=== PATIENT | female | born 1945 | race Caucasian/White ===

== ENCOUNTER 2016-09-16 08:27 | Day surgery (SDC) | payer MEDICARE, BC ==
[2016-09-16] MEDS ORDERED: ACETAZOLAMIDE 500 MG CER ONE (08:44)
[2016-09-16] MEDS: PROPARACAINE HCL 0.5% OPHTHALMIC SOL ONE ×3 (08:56→09:59)
[2016-09-16] MEDS: PHENYLEPHRINE HCL 10% OPHTHAL SOL ONE ×2 (08:57→09:13)
[2016-09-16] MEDS: CYCLOPENTOLATE 1% SOL ONE ×2 (08:57→09:14)
[2016-09-16] MEDS ORDERED: MIDAZOLAM 2 MG/2 ML SOL ONE (09:36)
[2016-09-16] MEDS ORDERED: BSS 500 ML 500 ML IR ONE (09:56)
[2016-09-16] MEDS ORDERED: POVIDONE IODINE 5% SOL ONE (09:56)
[2016-09-16] MEDS ORDERED: LIDOCAINE HCL 1% MPF SOL ONE (09:56)
[2016-09-16 10:39] VITALS: BP 124/65; PULSE 72; RESP 20; TEMP 97.2; O2SAT 98
== END 2016-09-16 10:55 | disposition home or self-care (01) | DRG 125 ==
LOC: SURG 08:27
PROVIDERS: ATTEND Ophthalmology
DX: H25.9 Unspecified age-related cataract (principal)
CPT/HCPCS: J2250; J2001

== ENCOUNTER 2016-09-19 08:40 | Emergency (ER) | payer MEDICARE, BC ==
[2016-09-19] MEDS ORDERED: HYDROMORPHONE HCL 2 MG/ML SOL IV ONE (08:58)
[2016-09-19] MEDS ORDERED: ONDANSETRON HCL 4 MG/2 ML SOL IM ONE (08:59)
[2016-09-19 09:14] VITALS: BP 133/83; PULSE 78; RESP 20; TEMP 97.5; O2SAT 100
[2016-09-19] MEDS ORDERED: ONDANSETRON HCL 4 MG/2 ML SOL ONE (09:21)
[2016-09-19] MEDS ORDERED: HYDROMORPHONE 1 MG/ML SYRINGE ONE (09:21)
[2016-09-19] MEDS ORDERED: HYDROMORPHONE HCL 2 MG/ML SOL IM ONE (09:27)
== END 2016-09-19 10:15 | disposition home or self-care (01) | DRG 395 ==
LOC: ED 08:40
DX: K66.0 Peritoneal adhesions (postprocedural) (postinfection) (principal)
CPT/HCPCS: 99283; J2405; J1170

== ENCOUNTER 2017-08-23 10:57 | Emergency (ER) | payer MEDICARE, BC ==
[2017-08-23] MEDS ORDERED: ONDANSETRON HCL IV ONE (11:15)
[2017-08-23] MEDS ORDERED: SODIUM CHLORIDE 0.9% IV ONE (11:15)
[2017-08-23] MEDS ORDERED: HYDROMORPHONE HCL 2 MG/ML SOL IV ONE (11:16)
[2017-08-23] MEDS ORDERED: HYDROMORPHONE 1 MG/ML SYRINGE ONE (11:21)
[2017-08-23] MEDS ORDERED: ONDANSETRON HCL 4 MG/2 ML SOL ONE ×2 (11:21→13:36)
[2017-08-23] MEDS: SODIUM CHLORIDE 0.9% 1000ML 1,000 ML IV SCH ×4 (11:33→14:18)
[2017-08-23 11:34] VITALS: RESP 18
[2017-08-23 11:37] LABS: BASOPHILS % (AUTO) 1 % (0-3); EOSINOPHILS % (AUTO) 1 % (0-9); HEMATOCRIT 42 % (35-47); HEMOGLOBIN 14.1 gm/dl (12.0-15.5); LYMPHOCYTES % (AUTO) 10.1 % (10-50); MEAN CORPUSCULAR HEMOGLOBIN 28.8 pg (27.0-32.0); MEAN CORPUSCULAR HGB CONC 33.9 gm/dl (32.0-36.0); MEAN CORPUSCULAR VOLUME 85 fL (81-99); MONOCYTES % (AUTO) 5.3 % (0-12); NEUTROPHILS % (AUTO) 81.8 % (37-80)
[2017-08-23] MEDS ORDERED: ONDANSETRON HCL 4 MG/2 ML SOL IV ONE (11:41)
[2017-08-23 11:49] LABS: ALBUMIN 3.3 gm/dl (3.4-5.0); BILIRUBIN,TOTAL 0.4 mg/dl (0.2-1.0); CALCIUM 9.2 mg/dl (8.5-10.1); CARBON DIOXIDE 27.6 mEq/L (21-32); CREATININE 0.89 mg/dl (0.60-1.00); POTASSIUM 4.2 mMol/L (3.5-5.1); TOTAL PROTEIN 6.8 gm/dl (6.4-8.2)
[2017-08-23 12:06] VITALS: TEMP 98.7
[2017-08-23] MEDS ORDERED: PROMETHAZINE HYDROCHLORIDE 25 MG/ML SOL IV ONE (13:40)
[2017-08-23] MEDS ORDERED: PROMETHAZINE HYDROCHLORIDE 25 MG/ML SOL ONE (13:41)
[2017-08-23 14:52] VITALS: BP 122/88; PULSE 76; O2SAT 94
== END 2017-08-23 15:07 | disposition home or self-care (01) | DRG 390 ==
LOC: ED 10:57
DX: K56.0 Paralytic ileus (principal)
CPT/HCPCS: 74019; 80053; 85025; 96365; 96374; 96375; 99284; 99285; J2405; J2550; J1170

== ENCOUNTER 2017-12-26 06:47 | Emergency (ER) | payer MEDICARE, BC ==
[2017-12-26 07:03] VITALS: TEMP 96.7
[2017-12-26] MEDS ORDERED: PROCHLORPERAZINE EDISYLATE 5 MG/ML SOL IV ONE (07:10)
[2017-12-26] MEDS ORDERED: SODIUM CHLORIDE 0.9% 1000ML 1,000 ML IV ONE (07:15)
[2017-12-26] MEDS ORDERED: HYDROMORPHONE 1 MG/ML SYRINGE IV SCH (07:15)
[2017-12-26] MEDS ORDERED: PROCHLORPERAZINE EDISYLATE 5 MG/ML SOL ONE (07:17)
[2017-12-26] MEDS ORDERED: HYDROMORPHONE 1 MG/ML SYRINGE ONE (07:17)
[2017-12-26 07:31] LABS: BASOPHILS % (AUTO) 1 % (0-3); EOSINOPHILS % (AUTO) 3 % (0-9); HEMATOCRIT 42 % (35-47); HEMOGLOBIN 13.5 gm/dl (12.0-15.5); LYMPHOCYTES % (AUTO) 9.9 % (10-50); MEAN CORPUSCULAR HEMOGLOBIN 27.8 pg (27.0-32.0); MEAN CORPUSCULAR HGB CONC 31.9 gm/dl (32.0-36.0); MEAN CORPUSCULAR VOLUME 87 fL (81-99); MONOCYTES % (AUTO) 5.9 % (0-12); NEUTROPHILS % (AUTO) 80.4 % (37-80)
[2017-12-26 07:36] LABS: ALBUMIN 3.3 gm/dl (3.4-5.0); BILIRUBIN,TOTAL 0.4 mg/dl (0.2-1.0); CALCIUM 8.7 mg/dl (8.5-10.1); CREATININE 0.99 mg/dl (0.60-1.00); POTASSIUM 3.9 mMol/L (3.5-5.1); TOTAL PROTEIN 6.5 gm/dl (6.4-8.2)
[2017-12-26 08:46] VITALS: O2SAT 98
[2017-12-26 11:17] VITALS: BP 116/78; PULSE 77; RESP 18
== END 2017-12-26 10:14 | disposition home or self-care (01) | DRG 390 ==
LOC: ED 06:47
DX: K56.600 Partial intestinal obstruction, unspecified as to cause (principal)
CPT/HCPCS: 36415; 74177; 80053; 85025; 96365; 96366; 96374; 96375; 99283; 99284; J0780; Q9967; J1170

== ENCOUNTER 2018-02-07 07:08 | Inpatient (IN) | payer MEDICARE, BC ==
[2018-02-07] MEDS ORDERED: ONDANSETRON HCL 4 MG/2 ML SOL IV ONE (07:47)
[2018-02-07] MEDS ORDERED: HYDROMORPHONE 1 MG/ML SYRINGE IV ONE (07:47)
[2018-02-07] MEDS ORDERED: ONDANSETRON HCL 4 MG/2 ML SOL ONE (07:49)
[2018-02-07] MEDS ORDERED: SODIUM CHLORIDE 0.9% 1000ML 1,000 ML IV ONE (07:49)
[2018-02-07] MEDS ORDERED: HYDROMORPHONE 1 MG/ML SYRINGE ONE (07:53)
[2018-02-07 07:56] LABS: HEMATOCRIT 41 % (35-47); HEMOGLOBIN 13.2 gm/dl (12.0-15.5); MEAN CORPUSCULAR HEMOGLOBIN 27.2 pg (27.0-32.0); MEAN CORPUSCULAR HGB CONC 31.9 gm/dl (32.0-36.0); MEAN CORPUSCULAR VOLUME 85 fL (81-99)
[2018-02-07 08:05] LABS: ALBUMIN 3.1 gm/dl (3.4-5.0); BILIRUBIN,TOTAL 0.4 mg/dl (0.2-1.0); CALCIUM 8.3 mg/dl (8.5-10.1); CARBON DIOXIDE 26.5 mEq/L (21-32); CREATININE 0.82 mg/dl (0.60-1.00); POTASSIUM 3.6 mMol/L (3.5-5.1); TOTAL PROTEIN 6.5 gm/dl (6.4-8.2)
[2018-02-07 08:13] LABS: BAND NEUTROPHILS % (MANUAL) 0 %; BASOPHILS % (MANUAL) 0 % (0-3); EOSINOPHILS % (MANUAL) 0 % (0-9); LYMPHOCYTES % (MANUAL) 6 % (10-50); MONOCYTES % (MANUAL) 2 % (0-12); NEUTROPHILS % (MANUAL) 92 % (37-80); NORMAL RBCS NORMAL RBCS
[2018-02-07] MEDS: PANTOPRAZOLE SODIUM 40 MG/10 ML PDS IV SCH (14:43)
[2018-02-07] MEDS: SODIUM CHLORIDE 0.9% FLUSH 10 ML SOL IV SCH ×3 (14:45→23:49)
[2018-02-07] MEDS: HYDROMORPHONE 1 MG/ML SYRINGE IV PRN (16:39)
[2018-02-07] MEDS: ONDANSETRON 4 MG ODT BU PRN (17:43)
[2018-02-07] MEDS: DEXTROSE/SALINE 0.45/KCL 20MEQ 1,000 ML/1,000 ML SOL IV SCH (23:49)
[2018-02-08] MEDS: HYDROMORPHONE 1 MG/ML SYRINGE IV PRN (00:20)
[2018-02-08] MEDS: ONDANSETRON 4 MG ODT BU PRN (00:20)
[2018-02-08] MEDS: DEXTROSE/SALINE 0.45/KCL 20MEQ 1,000 ML/1,000 ML SOL IV SCH ×3 (06:51→20:27)
[2018-02-08] MEDS: SODIUM CHLORIDE 0.9% FLUSH 10 ML SOL IV SCH ×3 (06:51→22:38)
[2018-02-08 07:20] LABS: CALCIUM 7.4 mg/dl (8.5-10.1); CARBON DIOXIDE 27.5 mEq/L (21-32); CREATININE 0.73 mg/dl (0.60-1.00); POTASSIUM 3.9 mMol/L (3.5-5.1)
[2018-02-08 07:33] LABS: BASOPHILS % (AUTO) 1 % (0-3); EOSINOPHILS % (AUTO) 1 % (0-9); HEMATOCRIT 40 % (35-47); HEMOGLOBIN 12.6 gm/dl (12.0-15.5); LYMPHOCYTES % (AUTO) 13.9 % (10-50); MEAN CORPUSCULAR HEMOGLOBIN 27.8 pg (27.0-32.0); MEAN CORPUSCULAR HGB CONC 31.6 gm/dl (32.0-36.0); MEAN CORPUSCULAR VOLUME 88 fL (81-99); MONOCYTES % (AUTO) 5.7 % (0-12); NEUTROPHILS % (AUTO) 77.8 % (37-80)
[2018-02-08] MEDS: PANTOPRAZOLE SODIUM 40 MG/10 ML PDS IV SCH (09:00)
[2018-02-08] MEDS: LORAZEPAM 2 MG/ML SOL IV PRN ×2 (18:00→22:43)
[2018-02-09] MEDS: DEXTROSE/SALINE 0.45/KCL 20MEQ 1,000 ML/1,000 ML SOL IV SCH (02:41)
[2018-02-09] MEDS: LORAZEPAM 2 MG/ML SOL IV PRN (03:35)
[2018-02-09] MEDS: SODIUM CHLORIDE 0.9% FLUSH 10 ML SOL IV SCH ×4 (05:47→22:45)
[2018-02-09 07:38] LABS: CALCIUM 7.4 mg/dl (8.5-10.1); CARBON DIOXIDE 27.3 mEq/L (21-32); CREATININE 0.75 mg/dl (0.60-1.00); POTASSIUM 3.7 mMol/L (3.5-5.1)
[2018-02-09 07:49] LABS: BASOPHILS % (AUTO) 1 % (0-3); EOSINOPHILS % (AUTO) 1 % (0-9); HEMATOCRIT 38 % (35-47); LYMPHOCYTES % (AUTO) 14.8 % (10-50); MEAN CORPUSCULAR HEMOGLOBIN 27.5 pg (27.0-32.0); MEAN CORPUSCULAR HGB CONC 31.3 gm/dl (32.0-36.0); MEAN CORPUSCULAR VOLUME 88 fL (81-99); MONOCYTES % (AUTO) 5.7 % (0-12); NEUTROPHILS % (AUTO) 77.4 % (37-80)
[2018-02-09] MEDS: PANTOPRAZOLE SODIUM 40 MG/10 ML PDS IV SCH (09:55)
[2018-02-09] MEDS ORDERED: ACETAMINOPHEN 325 MG PO PRN (14:38)
[2018-02-09] MEDS ORDERED: KETOROLAC TROMETHAMINE 30 MG/ML SOL IV ONE (14:47)
[2018-02-10] MEDS: SODIUM CHLORIDE 0.9% FLUSH 10 ML SOL IV SCH ×5 (04:47→23:07)
[2018-02-10] MEDS: PANTOPRAZOLE SODIUM 40 MG/10 ML PDS IV SCH (10:08)
[2018-02-10] MEDS: LORAZEPAM 2 MG/ML SOL IV PRN (23:05)
[2018-02-10] MEDS: NAPROXEN 500 MG TAB PO PRN (23:06)
[2018-02-11 02:38] VITALS: RESP 18; O2SAT 95
[2018-02-11] MEDS: SODIUM CHLORIDE 0.9% FLUSH 10 ML SOL IV SCH (08:11)
[2018-02-11] MEDS: PANTOPRAZOLE SODIUM 40 MG/10 ML PDS IV SCH (08:11)
[2018-02-11] MEDS: NAPROXEN 500 MG TAB PO PRN (08:12)
[2018-02-11 10:35] VITALS: BP 157/87; PULSE 71; TEMP 97.9
[2018-02-11] MEDS ORDERED: PNEUMOCOCCAL VACCINE 0.5 ML SOL IM ONE (10:57)
== END 2018-02-11 11:55 | disposition home or self-care (01) | DRG 390 ==
LOC: ED 07:08 → ACUTE CARE 10:10
PROVIDERS: ADMIT Family Medicine; ATTEND Family Medicine
DX: K56.699 Other intestinal obstruction unspecified as to partial versus complete obstruction (principal); K56.609 Unspecified intestinal obstruction, unspecified as to partial versus complete obstruction; E78.5 Hyperlipidemia, unspecified; E03.9 Hypothyroidism, unspecified; R51 Headache; R11.0 Nausea; R05 Cough
CPT/HCPCS: 36415; 71045; 74177; 80048; 80053; 82150; 84484; 85007; 85025; 85027; 90732; 93005; 96365; 96366; 96374; 99222; 99238; 99285; J1885; J2060; J2405; Q9967; A9270-GY; G0008; J1170